=== PATIENT | male | born 1950 | race Caucasian/White ===

== ENCOUNTER 2020-06-12 11:21 | Emergency (ER) | payer OTHER ==
[2020-06-12 12:08] LABS: HEMOGLOBIN 13.7 gm/dl (14.0-17.5); RED BLOOD COUNT 4.52 M/UL (4.20-5.50); WHITE BLOOD COUNT 7.1 K/UL (4.5-11.0)
[2020-06-12 12:40] LABS: BUN/CREATININE RATIO 22 (0-10)
== END 2020-06-12 14:35 | disposition home or self-care (01) ==
LOC: ER1 11:21
PROVIDERS: Student in an Organized Health Care Education/Training Program
DX: S50.811A Abrasion of right forearm, initial encounter (principal); S00.81XA Abrasion of other part of head, initial encounter; R51.9 Headache, unspecified; M54.2 Cervicalgia; R10.9 Unspecified abdominal pain; M25.561 Pain in right knee; Z23 Encounter for immunization; I25.10 Atherosclerotic heart disease of native coronary artery without angina pectoris; I10 Essential (primary) hypertension; J44.9 Chronic obstructive pulmonary disease, unspecified; Z87.891 Personal history of nicotine dependence; V49.40XA Driver injured in collision with unspecified motor vehicles in traffic accident, initial encounter; Y92.410 Unspecified street and highway as the place of occurrence of the external cause
CPT/HCPCS: 70450; 71260; 72125; 72128; 72131; 73562; 80053; 81001; 82550; 82553; 83605; 83874; 84484; 85025; 85610; 85730; 90471; 90715; 93005; 99285; Q9967